=== PATIENT | female | born 1960 | race Caucasian/White ===

== ENCOUNTER → 2016-11-09 | Outpatient (CLI) | payer MEDICAID ==
[~2016-11-09] MED LIST: BUPR150T13 PO; BUPR75TA5 PO; DIAZ5TAB PO; LISI-170 PO; LISI-424 PO; MELO-190 PO; Muscle relaxant PO; OXYC-229 PO; PREG25CA PO; SENN1TAB7 PO
== END | disposition home or self-care (01) ==
LOC: CFH 15:03
PROVIDERS: ATTEND Neurological Surgery
DX: G31.9 Degenerative disease of nervous system, unspecified (principal); R90.82 White matter disease, unspecified
CPT/HCPCS: 70551

== ENCOUNTER → 2017-04-17 | Outpatient (CLI) | payer MEDICAID ==
[~2017-04-17] MED LIST changes: +GADOBUTROL 10 MMOL/10 ML PFS ONE; -MELO-190 PO; +MELO7.5T31 PO; -OXYC-229 PO; +OXYC-307 PO
== END | disposition home or self-care (01) ==
LOC: CFH 11:40
PROVIDERS: ATTEND Neurological Surgery
DX: M77.8 Other enthesopathies, not elsewhere classified (principal); G56.21 Lesion of ulnar nerve, right upper limb
CPT/HCPCS: 73223; 82565; A9585

== ENCOUNTER 2018-02-28 23:23 | Emergency (ER) | payer MEDICAID ==
[~2018-02-28] VITALS: Ht 162.6 cm; Wt 65.1 kg
[~2018-02-28 23:23] MED LIST changes: -GADOBUTROL 10 MMOL/10 ML PFS ONE; -SENN1TAB7 PO; +SENN1TAB8 PO
[2018-02-28 23:26] VITALS: BP 186/99
== END 2018-03-01 01:14 | disposition home or self-care (01) ==
LOC: ED 23:59
DX: S63.521A Sprain of radiocarpal joint of right wrist, initial encounter (principal); S63.511A Sprain of carpal joint of right wrist, initial encounter; I10 Essential (primary) hypertension; Z98.51 Tubal ligation status; W19.XXXA Unspecified fall, initial encounter; Y93.89 Activity, other specified; Y92.009 Unspecified place in unspecified non-institutional (private) residence as the place of occurrence of the external cause; Y99.8 Other external cause status
CPT/HCPCS: 29125; 72190; 99284

== ENCOUNTER → 2020-03-25 | Outpatient (CLI) | payer MEDICAID ==
[~2020-03-25] MED LIST changes: +SENN-177 PO; -SENN1TAB8 PO
== END | disposition home or self-care (01) ==
LOC: CFH 10:10
PROVIDERS: ATTEND Nurse Practitioner Family
DX: M51.36 Other intervertebral disc degeneration, lumbar region (principal); M48.061 Spinal stenosis, lumbar region without neurogenic claudication; M47.813 Spondylosis without myelopathy or radiculopathy, cervicothoracic region; M47.12 Other spondylosis with myelopathy, cervical region
CPT/HCPCS: 72040; 72110; 72141; 72148

== ENCOUNTER 2020-04-13 00:04 | Emergency (ER) | payer MEDICAID ==
[~2020-04-13] VITALS: Ht 162.6 cm; Wt 55.0 kg
[2020-04-13] MEDS ORDERED: LABETALOL 20 MG/4 ML ONE (00:16)
[2020-04-13] MEDS ORDERED: LABETALOL 5MG/ML, 20ML IVPush ONE ×2 (00:30→01:30)
--- NOTE | 2020-04-13 00:35 | NUR ---
THIS IS A 59 YO F BIB EMS W/ C/O HTN AND SOLIS. PT REPORTS HX OF HTN AND HAS NOT BEEN ON LISINOPRIL X1 YEAR. PIV STARTED, LABS DRAWN PT MEDICATED PER EMAR. PT RESTING ON GURNEY W/ CALL LIGHT IN REACH AND SIDE RAILS UPX2. RESP EVEN AND UNLABORED, MOISÉS.
--- NOTE | 2020-04-13 00:36 | NUR ---
PER EMS. PT RECEIVED 1000MG TYLENOL AND 600 IBUPROFEN PO CARDIAC SURGEON.
[2020-04-13 00:49] LABS: BASOPHILS % (AUTO) 1 % (0-1); EOSINOPHILS % (AUTO) 2 % (1-7); LYMPHOCYTES % (AUTO) 25 % (22-44); MEAN CORPUSCULAR HEMOGLOBIN 30.8 pg (27.0-34.8); MEAN CORPUSCULAR HGB CONC 33.4 g/dL (32.4-35.8); MEAN PLATELET VOLUME 7.8 fL (7.4-10.4); MONOCYTES % (AUTO) 7 % (2-9); NEUTROPHILS % (AUTO) 66 % (42-75); PLATELET COUNT 328 x10^3/uL (130-400); RED BLOOD COUNT 4.77 x10^6/uL (3.82-5.3); RED CELL DISTRIBUTION WIDTH 12.7 % (9.6-15.2)
[2020-04-13 00:50] LABS: MD NO
[2020-04-13 00:53] LABS: ALBUMIN 4.1 g/dL (3.4-5.0); ANION GAP 4 mmol/L (5-15); CALCIUM 8.8 mg/dL (8.5-10.1); CHLORIDE 108 mmol/L (98-107); CREATININE 1.04 mg/dL (0.55-1.02)
[2020-04-13 00:57] LABS: TROPONIN I < 0.015 ng/mL (0.000-0.045)
--- NOTE | 2020-04-13 01:12 | NUR ---
PT AMBULATED TO THE BR W/ A STEADY GAIT. RETURNED TO ROOM W/O INCIDENT.
[2020-04-13 01:48] VITALS: BP 139/89
--- NOTE | 2020-04-13 01:58 | NUR ---
Patient given discharge instructions and they have confirmed that they understand the instructions. Patient ambulatory with steady gait.
== END 2020-04-13 01:59 | disposition home or self-care (01) ==
LOC: ED 01:25
DX: I10 Essential (primary) hypertension (principal); F17.200 Nicotine dependence, unspecified, uncomplicated
CPT/HCPCS: 36415; 80048; 82040; 84484; 85025; 93005; 96374

== ENCOUNTER → 2020-05-07 | Outpatient (CLI) | payer MEDICAID | END | disposition home or self-care (01) | LOC: CFH 13:06 | PROVIDERS: ATTEND Nurse Practitioner Family | DX: M47.813 Spondylosis without myelopathy or radiculopathy, cervicothoracic region (principal); G95.89 Other specified diseases of spinal cord; M25.78 Osteophyte, vertebrae | CPT/HCPCS: 72125 ==